=== PATIENT | female | born 1975 | race Caucasian/White ===

== ENCOUNTER 2020-04-20 15:22 | Outpatient (REF) | payer OTHER, SELFPAY ==
[2020-04-20 16:55] LABS: Anion Gap 8.4 mmol/L (3-11); BUN 13 mg/dL (7-18); CO2 25.6 mmol/L (21.0-32.0); CREATININE 0.73 mg/dL (0.55-1.02); Calcium 8.5 mg/dL (8.5-10.1); Chloride 103 mmol/L (98-107); Glucose 89 mg/dL (74-106); Potassium 4.3 mmol/L (3.5-5.1); Sodium 137 mmol/L (136-145)
[2020-04-20 17:57] LABS: Vitamin D 25 Total 26.2 ng/ml (30-100)
[2020-04-21 10:12] LABS: Hepatitis C Ab w Rflx HCV PCR Negative (Negative)
== END 2020-04-20 15:42 ==
LOC: NCHCN 15:22
PROVIDERS: PCP Nurse Practitioner Family; Visit Provider Nurse Practitioner Family
DX: Z00.00 Encounter for general adult medical examination without abnormal findings (principal); Z13.21 Encounter for screening for nutritional disorder; Z11.59 Encounter for screening for other viral diseases
CPT/HCPCS: 80048; 82306; 86803

== ENCOUNTER 2020-04-21 10:48 | Outpatient (REF) | payer OTHER, SELFPAY ==
--- NOTE | 2020-04-21 09:10 | PAPFT_PTH ---
PATIENT: Renita Rock LOC: [facility] U#:[id number] AGE/SX: 44/F ROOM: RE04/21/[address]: NOEMY Padilla : 1975 BED: DIS: 04/21/2020 SPEC #: [id number] RECD: 04/21/20 12:59 STATUS: BARBIE REEulalio #: [id number] LALO: 04/21/20 09:[address]: Sadia Naik DEPT: [facility] Cytology RECD BY: Ilda Hinson ENTERED: 04/21/20 12:59 SP TYPE: PAPFT MORALES DR: Diandra White Tissues: 1 - CX/ENDOCX FOR PAP SMEARS Procedures: PAP THIN PREP/UVM Screening HPV DNA PROBE Comments: [id number]
== END 2020-04-21 11:08 ==
LOC: LBN 10:48
PROVIDERS: PCP Nurse Practitioner Family; Visit Provider Nurse Practitioner Family
DX: Z12.4 Encounter for screening for malignant neoplasm of cervix (principal); Z11.51 Encounter for screening for human papillomavirus (HPV)
CPT/HCPCS: 88142; 87624

== ENCOUNTER 2020-05-06 02:16 | Outpatient (CLI) | payer OTHER, SELFPAY ==
--- NOTE | 2020-05-06 06:30 | DI.MAMMO_ITS ---
EXAM: MAMMO SCREENING CLINICAL HISTORY: screening,Z12.39 TECHNIQUE: Bilateral full field digital CC and MLO mammographic images were obtained with 3D tomosyn thesis and utilizing computer aided detection (CAD). COMPARISON: Available for comparison. FINDINGS: Masses/Architectural Distortion: There is a new 0.5 cm nodule 3 cm from the nipple in the left breast best appreciated on the mediolateral oblique view. There is a new nodular density in the upper righ t breast on the MLO view 8 cm from the nipple. Microcalcifications: No suspicious pleomorphic-type are seen. Skin Thickening/Nipple Retraction: None. IMPRESSION: 1. Two nodular densities seen 1 in the left breast and 1 in the right breast. 2. Bilateral spot compression views and ultrasound are requested for further evaluation. BI-RADS Category 0 - Assessment Incomplete: Need additional imaging evaluation Breast Density - Category B - Scattered areas of fibroglandular density Breast density category C or D implies that the patient has dense breast tissue. Dense breast tissue is very common and is not abnormal but dense breast tissue can make it harder to find cancer on a ma mmogram. Also, dense breast tissue may increase their breast cancer risk. This information about the result of the mammogram report was provided to the patient to raise their awareness. Use this report when you speak with the patient about their risks for breast cancer, which includes their family hist ory. At that time, you may recommend for more screening tests (Ultrasound or MRI) as they might be us eful based on their risk. A negative radiographic report should not delay biopsy if a dominant or clinically suspicious mass is present. Up to ten percent of cancers are not identified on mammography. A negative report may reinforce clinical impression. Adenosis and dense breasts may obscure an underlying neoplasm. False positive reports average 6 to 10%. Patient will receive a letter notifying them of these results.
== END 2020-05-06 02:17 | disposition home or self-care (01) ==
LOC: DI 02:16
PROVIDERS: PCP Nurse Practitioner Family; Visit Provider Nurse Practitioner Family
DX: Z12.31 Encounter for screening mammogram for malignant neoplasm of breast (principal); R92.8 Other abnormal and inconclusive findings on diagnostic imaging of breast
CPT/HCPCS: 77063; 77067

== ENCOUNTER 2020-05-15 02:44 | Outpatient (CLI) | payer OTHER, SELFPAY ==
--- NOTE | 2020-05-15 09:35 | DI.MAMMO_ITS ---
EXAM: MG MAMMO SCREEN CALL BACK BI CLINICAL HISTORY: F/U MAMMO, LT BREAST NODULAR DENSITY AND RTBREAST NODULAR DENSITY TECHNIQUE: Spot compression views and tomographic imaging were performed. COMPARISON: Outside exams from 2016 and 2018 and recent exam dated 06 May 2020. FINDINGS: The breasts are composed of scattered fibroglandular densities, Breast Density category B. No suspicious masses or suspicious microcalcifications are seen. No persistent abnormality is seen on the additional views performed. The findings are consistent wit h overlying fibroglandular tissue. There has been no significant change from prior exams. IMPRESSION: BI-RADS Category 1, Negative Yearly screening mammography is recommended. Breast Density - Category B, scattered fibroglandular densities.
== END 2020-05-15 02:45 ==
LOC: DI 02:45
PROVIDERS: PCP Nurse Practitioner Family; Visit Provider Nurse Practitioner Family
DX: Z12.31 Encounter for screening mammogram for malignant neoplasm of breast (principal); R92.8 Other abnormal and inconclusive findings on diagnostic imaging of breast; N64.59 Other signs and symptoms in breast
CPT/HCPCS: 77063; 77067

== ENCOUNTER 2021-07-06 15:28 | Outpatient (REF) | payer OTHER, SELFPAY ==
[2021-07-06 21:27] LABS: Hemoglobin A1C 5.6 % (<5.7)
[2021-07-06 21:37] LABS: Calculated LDL 119 mg/dL (<100); Cholesterol 219 mg/dL (<200); HDL Cholesterol 40 mg/dL (40-60); TSH (W/Ref FT4) 1.16 uIU/mL (0.36-3.74); Triglyceride 300 mg/dL (<150)
[2021-07-08 10:56] LABS: HIV-1/2 Ag & Ab Screen Negative (Negative)
== END 2021-07-06 15:29 | disposition home or self-care (01) ==
LOC: NCHCN 15:28
PROVIDERS: PCP Nurse Practitioner Family; Visit Provider Family Medicine
DX: Z00.00 Encounter for general adult medical examination without abnormal findings (principal); F41.9 Anxiety disorder, unspecified; Z13.1 Encounter for screening for diabetes mellitus; Z13.220 Encounter for screening for lipoid disorders; Z11.4 Encounter for screening for human immunodeficiency virus [HIV]
CPT/HCPCS: 80061; 87389; 83036; 84443

== ENCOUNTER → 2021-08-18 01:23 | Outpatient (CLI) | payer OTHER, SELFPAY ==
--- NOTE | 2021-08-18 08:30 | DI.MAMMO_ITS ---
Exam(s) MAMMO SCREENING EXAM: MAMMO SCREENING CLINICAL HISTORY: screening. TECHNIQUE: Bilateral full field digital CC and MLO mammographic images were obtained with 3D tomosyn thesis and utilizing computer aided detection (CAD). COMPARISON: Prior mammograms were reviewed, the most recent being May 2020. FINDINGS: There has been no significant change in the appearance and distribution of the fibroglandular tissue. There are no CAD designations Multiple benign appearing punctate calcifications in medial right breast unchanged. There are no mal ignant-appearing microcalcification groups in either breast. There are no new spiculated masses nor malignant appearing microcalcification groups. Asymmetric density anteriorly in the left breast is unchanged. There is no significant architectural distortion nor skin thickening-retraction. IMPRESSION: No radiographic evidence of malignancy. BI-RADS Category 2 - Benign Findings Breast Density - Category B - Scattered areas of fibroglandular density Breast density Category C or D implies that the patient has dense breast tissue. Dense breast tissue can make it harder to find cancer on a mammogram. Dense breast tissue is also associated with an incr eased risk of breast cancer. This information about the result of the mammogram report was provided to the patient to raise their awareness. Use this report when you speak with the patient about their risks for breast cancer, which includes their family history. At that time, you may recommend additional screening tests (Ultrasoun d or MRI) as these tests may add significant information. A negative radiographic report should not delay biopsy if a dominant or clinically suspicious mass is present. Up to ten percent of cancers are not identified on mammography. A negative report may reinforce clinical impression. Adenosis and dense breasts may obscure an underlying neoplasm. False positive reports average 6 to 10%. Patient will receive a letter notifying them of these results.
== END ==
PROVIDERS: PCP Nurse Practitioner Family; Visit Provider Nurse Practitioner Family
DX: Z12.31 Encounter for screening mammogram for malignant neoplasm of breast (principal)
CPT/HCPCS: 77063; 77067

== ENCOUNTER 2022-01-06 07:08 | Day surgery (SDC) | payer OTHER, SELFPAY ==
--- NOTE | 2022-01-06 07:07 | W.PM.DSUDISC ---
Discharge Plan Disposition Patient Disposition: HOME Condition: Good Discharge Details Reason For Visit: Screening colonoscopy Attending Provider: Calvin Mccarty Primary Care Provider: Diandra White Home Meds and New Rx's Prescriptions: Continued citalopram 20 mg tablet 20 mg PO DAILY alprazolam [Xanax] 0.25 mg tablet 0.25 mg PO PRN multivitamin Tablet 1 tab PO DAILY Fish Oil 300-500 mg capsule 1 cap PO DAILY cholecalciferol (vitamin D3) 10 mcg (400 unit) capsule 10 mcg PO DAILY melatonin 5 mg capsule 5 mg PO HS PRN Rybelsus 3 mg tablet 3 mg PO DAILY Discontinued polyethylene glycol 3350 17 gram/dose powder 238 g PO ONCE Qty: 238 0RF Rx Instructions: take per colonoscopy instructions bisacodyl [Dulcolax (bisacodyl)] 5 mg tablet,delayed release (DR/EC) 5 mg PO ONCE Qty: 4 0RF Rx Instructions: take per colonoscopy instructions Discharge Instructions Instructions: Diverticulosis (DC), Colorectal Polyps (DC) Additional Instructions: 1. If tolerated, consume a soft, low fiber diet for 1-2 days. 2[address] Do not drive, drink alcohol, operate machinery, make critical decisions, or do activities that require coordination or balance for 24 hours. 3. Because air was put into your colon during the procedure, expelling air from your rectum (passing gas or farting) is normal. 4. You may not have a bowel movement for 1-3 days because of the colonoscopy prep. This is normal. 5. Go directly to the emergency room if you notice any of the following: Develop chills (warm to touch), or if you have a thermometer and your temperature is above 101 Difficulty breathing or difficultly swallowing Persistent vomiting Severe abdominal pain, other than gas cramps Severe chest pain Black, tarry stools Any bleeding ? exceeding one tablespoon 6. Call your physician if the site where your intravenous was started becomes red, swollen, painful, and warm to touch. 7. Your physician has reviewed your pre-procedure medications. Please continue to take those medications as previously ordered. You will be given specific information/education regarding any changes to your medications before leaving. Activity:: Activity as Tolerated Diet:: As Tolerated Discharge Orders Discharge Orders: Discharge Order (Routine); Ordered 01/06/22 Ordered By: Calvin Mccarty DS: Diagnosis Discharge Diagnosis (1) Colorectal polyps: Asessment and Plan: I will contact you with results of the biopsy
--- NOTE | 2022-01-06 07:08 | W.COLOREPORT ---
Colonoscopy Report Date of procedure: 01/06/22 Pre-op diagnosis general: Screening colonoscopy routine health maintenance Post-op diagnosis procedure note: other (Colorectal polyps, diverticulosis) Procedure: Screening colonoscopy Surgeon: Calvin Mccarty Anesthesia Type: General:No Airway Estimated blood loss (mL): 20 Pathology: other (Polyp at 100 cm, polyp at 20 cm) Complications: None Disposition: same day Indications: Renita is a 46-year-old woman who presents for routine colonoscopy as screening for basic health Prep: Miralax/Dulcolax Procedure Start Time: 08:29 Procedure End Time: 08:52 Retraction Time: 17 Procedure Description: After the induction of monitored anesthetic care, and with the patient in left lateral decubitus position, I began by performing an external anorectal exam.? Perineum and skin were normal, as was the anal verge.? There was a fibrosed external skin tag.? Next, I performed a digital rectal exam.? I did not appreciate any abnormal findings.? Next, I advanced a colonoscope into the rectal vault.? I performed retroflexion.? I did not see signs of pathologic internal hemorrhoids.? Using insufflation, I then advanced the colonoscope beyond the rectal folds and into the sigmoid colon before advancing towards the cecum.? The quality of the prep was adequate.? The scope was noted to be in the cecum by identification of the ileocecal valve and appendiceal orifice.? I then began withdrawing the colonoscope using repeated irrigation as necessary for full evaluation of the colonic mucosa. Around 100 cm from the anal verge I identified a 0.75 cm polyp. ?It appeared sessile in character. ?I was able to remove this with a cold forceps. ?I examined the site, and there was minimal bleeding. ?Once this was completed, I continued to withdraw the scope and examine the remainder of the colonic mucosa. Once the scope was withdrawn to the level of the rectum, great care was taken to examine portions of the rectal folds.?Around 20 cm from the anal verge I identified a 0.5 cm polyp. ?It appeared sessile in character. ?I was able to remove this with a cold forceps. ?I examined the site, and there was minimal bleeding. ?Once this was completed, I continued to withdraw the scope and examine the remainder of the colonic mucosa. Finally, the scope was withdrawn and the patient was brought to the same-day surgery recovery unit as the anesthetic wore off. ?The findings and instructions were shared with the patient prior to discharge.
[2022-01-06 07:28] VITALS: BP 120/84; PULSE 98; RESP 18; TEMP 36.6; O2SAT 97
--- NOTE | 2022-01-06 07:42 | W.ANESPRE ---
General Info Height: 5 ft 9.5 in Weight: 98.1 kg Body Mass Index (BMI): 31.4 Surgical Procedure: Operation Date: 01/06/22 08:35 Proposed Procedure Side Surgeon p Colonoscopy Calvin Mccarty MD Meds Allergies and Home Medications Allergies Allergy/AdvReac Type Severity Reaction Status Date / Time No Known Allergies Allergy Verified 01/06/22 07:32 Home Medication Medication Instructions Recorded citalopram 20 mg tablet 20 mg PO DAILY 04/21/20 alprazolam 0.25 mg tablet (Xanax) 0.25 mg PO PRN 07/05/21 melatonin 5 mg capsule 5 mg PO HS PRN 11/03/21 cholecalciferol (vitamin D3) 10 10 mcg PO DAILY 12/22/21 mcg (400 unit) capsule multivitamin 1 tab PO DAILY 12/22/21 omega-3 fatty acids-fish oil 300 1 cap PO DAILY 12/22/21 mg-500 mg capsule (Fish Oil) semaglutide 3 mg tablet (Rybelsus) 3 mg PO DAILY 12/23/21 Current Visit Medications: Current Medications Generic Name Dose Route Start Last Admin Trade Name Freq PRN Reason Stop Dose Admin Hyoscyamine Sulfate 0.125 mg 01/06/22 07:06 Hyoscyamine 0.125 Mg Sl/Oral/Chew SL DIRECTED PRN Ringer's Solution 1,000 mls @ 80 mls/hr 01/06/22 06:00 IV 02/04/22 23:59 INFUSION CATARINO IV Miscellaneous Supplies 1 each 01/06/22 06:00 Iv Access IV 02/04/22 23:59 DIRECTED CATARINO Ondansetron HCl 4 mg 01/06/22 07:06 Ondansetron 4 Mg/2 Ml Vial IVP Q4H PRN PRN Nausea / Vomiting Sodium Chloride 0 ml 01/06/22 06:00 Normal Saline Flush 10 Ml Syr IV 02/04/22 23:59 PRN PRN Sodium Chloride 0 ml 01/06/22 06:00 Normal Saline 10 Ml Vial IJ 02/04/22 23:59 DIRECTED PRN Sterile Water 0 ml 01/06/22 06:00 Water,Injection,Sterile 10 Ml Vial IJ 02/04/22 23:59 DIRECTED PRN PFSH Active Problems Active Problems: Problem Status Onset Code Screening for colon cancer Z12.11 Medical History Medical History Anxiety Family history of ovarian cancer Infertility Intramural uterine fibroid Perimenopausal menorrhagia Surgical History Surgical History (Updated 01/06/22 @ 07:35 by Miri Mensah) History of bunionectomy bilateral feet Hx of wisdom tooth extraction S/P dilation and curettage x 3 Tobacco Smoking/Tobacco Use Status: Former Tobacco Use Alcohol Alcohol Intake: current Alcohol intake frequency: a few times a week Alcohol type: wine Substance Use Substance use: Never Substance use type: does not use Details: alcohol: t-7 Prental History History 3 Para Hx # Term Pregnancies Multiple births Hx # Pregnancies Ectopic pregnancies AB induced Hx Number of Living Children AB spontaneous 3 Vital Signs and Lab Results Vital Signs Most Recent Vital Signs in EMR: Most Recent Vital Signs Temp Pulse Resp BP Pulse Ox 36.6 C 98 H 18 120/84 97 01/06/22 07:28 01/06/22 07:28 01/06/22 07:28 01/06/22 07:28 01/06/22 07:28 Lab Results Blood Type / Crossmatch: No Data to Display Complete Blood Count: No Data to Display Complete Metabolic Panel: No Data to Display Liver Function Panel: No Data to Display Coagulation Panel: No Data to Display Cardiac Panel: No Data to Display Arterial Blood Gas: No Data to Display Venous Blood Gas: No Data to Display Pancreas Panel: No Data to Display Thyroid Panel: No Data to Display Infectious Disease: No Data to Display Blood Cultures: No Data to Display Toxicology Panel: No Data to Display Panel: No Data to Display Anesthesia Assessment and Plan Anesthesia History Personal History: No History of Anesthesia Complications Family History: No Family History of Anesthesia Complications Exercise Tolerance Exercise Tolerance: Metabolic Equivalents>4 Implantable Cardiac Device Does patient have a Pacemaker or an ICD?: No ASA Classification ASA Score: ASA 2 Emergency Case?: No NPO Status NPO Status: NPO Clears >2 hours, Solids >8 hours Anesthesia Plan Resuscitation Status: Full Code Anesthesia Technique: General Anesthesia Airway Planned: Natural Airway Monitors Used: Standard Monitors Preoperative Comments:: 46 yo female for colonoscopy. Sig PMHx: Anxiety (alprazolam, citalopram), former smoker, occ EtOH, on semaglutide. Previous Airway: none on file.
[2022-01-06] MEDS: Lactated Ringers 1,000 ML 80 ML IV (07:50)
--- NOTE | 2022-01-06 08:14 | W.ANESPRE ---
General Info Date of Service Date Performed: 01/06/22 Height: 5 ft 9.5 in Weight: 98.1 kg Body Mass Index (BMI): 31.4 Surgical Procedure: Operation Date: 01/06/22 08:35 Proposed Procedure Side Surgeon candi Mccarty MD Meds Allergies and Home Medications Allergies Allergy/AdvReac Type Severity Reaction Status Date / Time No Known Allergies Allergy Verified 01/06/22 07:32 Home Medication Medication Instructions Recorded citalopram 20 mg tablet 20 mg PO DAILY 04/21/20 alprazolam 0.25 mg tablet (Xanax) 0.25 mg PO PRN 07/05/21 melatonin 5 mg capsule 5 mg PO HS PRN 11/03/21 cholecalciferol (vitamin D3) 10 10 mcg PO DAILY 12/22/21 mcg (400 unit) capsule multivitamin 1 tab PO DAILY 12/22/21 omega-3 fatty acids-fish oil 300 1 cap PO DAILY 12/22/21 mg-500 mg capsule (Fish Oil) semaglutide 3 mg tablet (Rybelsus) 3 mg PO DAILY 12/23/21 Current Visit Medications: Current Medications Generic Name Dose Route Start Last Admin Trade Name Freq PRN Reason Stop Dose Admin Hyoscyamine Sulfate 0.125 mg 01/06/22 07:06 Hyoscyamine 0.125 Mg Sl/Oral/Chew SL DIRECTED PRN Ringer's Solution 1,000 mls @ 80 mls/hr 01/06/22 06:00 01/06/22 07:50 IV 02/04/22 23:59 80 mls/hr INFUSION CATARINO Administration IV Miscellaneous Supplies 1 each 01/06/22 06:00 Iv Access IV 02/04/22 23:59 DIRECTED CATARINO Ondansetron HCl 4 mg 01/06/22 07:06 Ondansetron 4 Mg/2 Ml Vial IVP Q4H PRN PRN Nausea / Vomiting Sodium Chloride 0 ml 01/06/22 06:00 Normal Saline Flush 10 Ml Syr IV 02/04/22 23:59 PRN PRN Sodium Chloride 0 ml 01/06/22 06:00 Normal Saline 10 Ml Vial IJ 02/04/22 23:59 DIRECTED PRN Sterile Water 0 ml 01/06/22 06:00 Water,Injection,Sterile 10 Ml Vial IJ 02/04/22 23:59 DIRECTED PRN PFSH Active Problems Active Problems: Problem Status Onset Code Screening for colon cancer Z12.11 Medical History Medical History Anxiety Family history of ovarian cancer Infertility Intramural uterine fibroid Perimenopausal menorrhagia Surgical History Surgical History (Updated 01/06/22 @ 07:35 by Miri Mensah) History of bunionectomy bilateral feet Hx of wisdom tooth extraction S/P dilation and curettage x 3 Tobacco Smoking/Tobacco Use Status: Former Tobacco Use Alcohol Alcohol Intake: current Alcohol intake frequency: a few times a week Alcohol type: wine Substance Use Substance use: Never Substance use type: does not use Details: alcohol: t-7 Prental History History 3 Para Hx # Term Pregnancies Multiple births Hx # Pregnancies Ectopic pregnancies AB induced Hx Number of Living Children AB spontaneous 3 Vital Signs and Lab Results Vital Signs Most Recent Vital Signs in EMR: Most Recent Vital Signs Temp Pulse Resp BP Pulse Ox 36.6 C 98 H 18 120/84 97 01/06/22 07:28 01/06/22 07:28 01/06/22 07:28 01/06/22 07:28 01/06/22 07:28 Lab Results Blood Type / Crossmatch: No Data to Display Complete Blood Count: No Data to Display Complete Metabolic Panel: No Data to Display Liver Function Panel: No Data to Display Coagulation Panel: No Data to Display Cardiac Panel: No Data to Display Arterial Blood Gas: No Data to Display Venous Blood Gas: No Data to Display Pancreas Panel: No Data to Display Thyroid Panel: No Data to Display Infectious Disease: No Data to Display Blood Cultures: No Data to Display Toxicology Panel: No Data to Display Panel: No Data to Display Anesthesia Assessment and Plan Anesthesia History Personal History: No History of Anesthesia Complications Family History: No Family History of Anesthesia Complications Exercise Tolerance Exercise Tolerance: Metabolic Equivalents>4 Pertinent Negatives Pertinent Negatives: No Symptoms of GERD, No Major Cardiovascular Symptoms or Complaints, No Major Pulmonary Symptoms or Complaints and No History of CVA/TIA Cardiac & Pulmonary Exam Cardiac Exam: Normal S1/S2 Heart Sounds Pulmonary Exam: Clear Bilateral Breath Sounds Implantable Cardiac Device Does patient have a Pacemaker or an ICD?: No Airway Exam Known Difficult Airway: No Mallampati Class: 2 Mouth Opening: Normal (> 3cm) Thyromental Distance: Greater than 3 cm Neck Range of Motion: Full ROM Neck Circumference: Normal Teeth Condition: Normal Dentition ASA Classification ASA Score: ASA 2 Emergency Case?: No NPO Status NPO Status: NPO Clears >2 hours, Solids >8 hours Status Status: Negative HCG Anesthesia Plan Resuscitation Status: Full Code Anesthesia Technique: General Anesthesia Airway Planned: Natural Airway Monitors Used: Standard Monitors
[2022-01-06 08:22] VITALS: BMI 31.4
--- NOTE | 2022-01-06 08:44 | BOWEL_PTH ---
PATIENT: Renita Rock LOC: [facility] U#:[id number] AGE/SX: 46/F ROOM: RE01/06/[address]: Calvin Mccarty MD : 1975 BED: DIS: 01/06/2022 SPEC #: [id number] RECD: 01/06/22 12:58 STATUS: JOSE LUISJesse RE #: [id number] LALO: 01/06/22 08:[address]: Calvin Mccarty DEPT: Surgical Specimen RECD BY: Ilda Hinson ENTERED: 01/06/22 12:59 SP TYPE: Bowel OTHR DR: Diandra White Tissues: 1 - BIOPSY BOWEL 2 - BIOPSY BOWEL Procedures: GROSS AND MICRO LEVEL 4 Comments: [id number]
[2022-01-06 08:55] VITALS: BP 127/96; PULSE 82; RESP 20; TEMP 36.2; O2SAT 97
[2022-01-06 09:21] VITALS: BP 134/90; PULSE 83; RESP 18; TEMP 36.5; O2SAT 97
--- NOTE | 2022-01-06 09:21 | W.ANESPOSTOP ---
Postoperative Evaluation Date, Time and Location Date Performed: 01/06/22 Time Performed: 09:21 Patient Location: Day Surgery Unit Vital Signs Most Recent Imported Vital Signs: Most Recent Vital Signs Temp Pulse Resp BP Pulse Ox 36.2 C L 82 20 127/96 H 97 01/06/22 08:55 01/06/22 08:55 01/06/22 08:55 01/06/22 08:55 01/06/22 08:55 Pain Score Most Recent Pain Score: Most Recent Pain Score Pain Level 0 01/06/22 07:28 Assessment Mental Status: Awake (Alert & Oriented to Patient Baseline) Airway and Respiratory Function: Patent airway with normal (patient baseline) respiratory exam Cardiovascular Function: Hemodynamically Stable Hydration Status: Adequately Hydrated Nausea & Vomiting: No Nausea or Vomiting Pain: Pt. Denies Any Pain Peripheral Nerve Block: Patient did not receive a nerve block
== END 2022-01-06 10:03 | disposition home or self-care (01) ==
PROVIDERS: PCP Nurse Practitioner Family; Visit Provider Surgery
PROC: 0DJD8ZZ Inspection of Lower Intestinal Tract, Via Natural or Artificial Opening Endoscopic (ICD-10-PCS; CPT 45378; principal; 2022-01-06 08:30)
DX: Z12.11 Encounter for screening for malignant neoplasm of colon (principal); K57.30 Diverticulosis of large intestine without perforation or abscess without bleeding; K62.1 Rectal polyp
CPT/HCPCS: 45380; 81025; 88305

== ENCOUNTER 2022-03-07 21:17 | Emergency (ER) | payer OTHER, SELFPAY ==
[2022-03-07 21:23] VITALS: BP 123/92; PULSE 118; RESP 16; TEMP 37.4; O2SAT 96
--- NOTE | 2022-03-07 22:32 | W.ED.GENAD ---
Discharge Plan Discharge Details Chief Complaint: Nausea/Vomit/Diar Primary Care Provider: Diandra White ED Provider: Nghia Ford Home Meds and New Rx's Prescriptions: No Action citalopram 20 mg tablet 20 mg PO DAILY alprazolam [Xanax] 0.25 mg tablet 0.25 mg PO PRN multivitamin Tablet 1 tab PO DAILY Fish Oil 300-500 mg capsule 1 cap PO DAILY cholecalciferol (vitamin D3) 10 mcg (400 unit) capsule 10 mcg PO DAILY melatonin 5 mg capsule 5 mg PO HS PRN Rybelsus 3 mg tablet 3 mg PO DAILY Medical Decision Making 46-year-old female flu positive presents with nausea and vomiting. Patient is tachycardic. Nontoxic currently resting comfortably no vomiting. Likely symptomatic flu. Lower suspicion for cholecystitis pancreatitis bowel junction or serious bacterial infection. Will obtain screening labs antiemetics anti-inflammatory close reassessment 23: 18 no active vomiting. Nontoxic. Awaiting labs UA and response to fluids Sign Out Yes HPI General Date/Time Provider Initiated Documentation: 03/07/22 21:52. HPI Narrative: 46-year-old female presents with nausea and vomiting in the setting of influenza. Had bowel movement earlier today no history of abdominal surgeries. Related Data Home Medications Medication Instructions Recorded Confirmed citalopram 20 mg tablet 20 mg PO DAILY 04/21/20 03/07/22 alprazolam 0.25 mg tablet (Xanax) 0.25 mg PO PRN 07/05/21 03/07/22 melatonin 5 mg capsule 5 mg PO HS PRN 11/03/21 03/07/22 cholecalciferol (vitamin D3) 10 10 mcg PO DAILY 12/22/21 03/07/22 mcg (400 unit) capsule multivitamin 1 tab PO DAILY 12/22/21 03/07/22 omega-3 fatty acids-fish oil 300 1 cap PO DAILY 12/22/21 03/07/22 mg-500 mg capsule (Fish Oil) semaglutide 3 mg tablet (Rybelsus) 3 mg PO DAILY 12/23/21 03/07/22 Allergies Allergy/AdvReac Type Severity Reaction Status Date / Time No Known Allergies Allergy Verified 03/07/22 21:27 General Stated Complaint: Nausea/Vomit/Diar GEORGES: 3 Review of Systems Narrative: Review of Systems Constitutional: negative Eyes: negative ENT: negative Cardiovascular: negative Respiratory: Nausea vomiting Gastrointestinal: negative : negative Musculoskeletal: negative Skin: negative Neurologic: negative Psych: negative PFSH All Active Problems (Updated 01/06/22 @ 09:01 by Calvin Mccarty MD) Screening for colon cancer (Acute) Medical History (Updated 01/06/22 @ 09:01 by Calvin Mccarty MD) Anxiety Colorectal polyps Family history of ovarian cancer Infertility Intramural uterine fibroid Perimenopausal menorrhagia Surgical History (Updated 01/06/22 @ 07:35 by Miri Mensah) History of bunionectomy bilateral feet Hx of wisdom tooth extraction S/P dilation and curettage x 3 Family History Father Diabetes Mother Tremor due to disorder of MAINTENA[employer]CE ELECT[employer]ICIAN Paternal Grandmother Ovarian cancer Social History Smoking/Tobacco Use Status: Former Tobacco Use Quit Date: 04/03/06 Smoking risk assessment performed?: Yes Alcohol Intake: current Alcohol Intake frequency: a few times a week Alcohol type: wine Drug use: Never Substance use type: does not use Details: alcohol: t-7 Do you feel safe at home: Yes Do you feel safe in your relationship?: Yes Female Reproductive History Menstrual control method: none History History 3 Para Hx # Term Pregnancies Multiple births Hx # Pregnancies Ectopic pregnancies AB induced Hx Number of Living Children AB spontaneous 3 Exam Narrative Exam Narrative: Physical Examination General: alert, awake, cooperative, resting comfortably, no acute distress HEENT: normocephalic, atraumatic; PERRL, EOM intact, conjunctiva normal; no nasal discharge; moist mucous membranes, oral and pharyngeal mucosa normal, tolerating secretions Neck: supple, trachea midline; full ROM Chest: normal to inspection Respiratory: normal respiratory effort, speaking in full sentences, clear to auscultation, no wheezing, rales or rhonchi Cardiac: Tachycardia, regular rhythm, S1S2 intact, no murmurs rubs or gallops GI: abdomen soft, non-tender, non-distended; no palpable mass or hepatosplenomegaly Skin: no lesions, rashes or trauma appreciated Neuro: AAOx3, normal speech, moving all extremities Psych: Appropriate mood and affect Course Vital Signs Vital signs: Vital Signs Temperature 37.4 C 12/05/22 21:23 Pulse 118 H 03/07/22 21:23 Respiratory Rate 16 03/07/22 21:23 Blood Pressure 123/92 H 03/07/22 21:23 Pulse Oximetry 96 03/07/22 21:23 Temperature 37.4 C 03/07/22 21:23 Temperature Source Temporal Artery Scan 03/07/22 21:23 Pulse 118 H 03/07/22 21:23 Respiratory Rate 16 03/07/22 21:23 Respiratory Effort 03/07/22 21:23 Blood Pressure 123/92 H 03/07/22 21:23 Blood Pressure Position Sitting 03/07/22 21:23 Pulse Oximetry 96 03/07/22 21:23 Oxygen Delivery Method Room Air 03/07/22 21:23 Oxygen Flow Rate 0 03/07/22 21:23 Pain Level 7 03/07/22 21:23
[2022-03-07] MEDS: Normal Saline 1,000 ML 1000 ML IV (22:36)
[2022-03-07] MEDS: LORazepam 2 MG/ML VIAL 1 MG IVP (22:37)
[2022-03-07] MEDS: Ondansetron 4 MG/2 ML VIAL IVP (22:37)
[2022-03-07 22:58] LABS: Abs Immature Grans 0.03 10^3/uL (0.0-0.06); Absolute Basophil Count 0.03 10^3/uL (0.0-0.2); Absolute Eosinophil Count 0.02 10^3/uL (0.0-0.7); Absolute Lymphocyte Count 0.29 10^3/uL (1.2-3.4); Absolute Monocyte Count 0.47 10^3/uL (0.1-0.8); Basophils % 0.4; Eosinophils % 0.3; HGB 13.1 g/dL (11.2-15.7); Immature Grans % 0.4; Lymphocytes % 4.2; MCHC 33.6 % (32.0-36.0); MCV 83 fL (80-95); MPV 9.6 fL (8.0-11.0); Monocytes % 6.9; Neutrophils % 87.8; Platelet Count 221 10^3/uL (130-400); RBC 4.68 10^6/uL (3.93-5.22); RDW 12.9 % (11.7-14.6); RDW-SD 38.6 fL; WBC 6.84 10^3/uL (4.4-10.8)
[2022-03-07] MEDS: Dexamethasone 10 MG/ML VIAL IVP (23:07)
[2022-03-07 23:14] LABS: ALT 16 U/L (14-59); AST 14 U/L (15-37); Albumin 3.7 g/dL (3.4-5.0); Alkaline Phosphatase 40 U/L (46-116); BUN 11 mg/dL (7-18); Bilirubin, Total 0.2 mg/dL (0.2-1.0); CREATININE 0.9 mg/dL (0.55-1.02); Calcium 8.8 mg/dL (8.5-10.1); Chloride 101 mmol/L (98-107); Estimated GFR 78.86 (mL/min/1.73m2); Glucose 130 mg/dL (74-106); Lipase 100 U/L (73-393); Potassium 3.8 mmol/L (3.5-5.1); Sodium 138 mmol/L (136-145); Total Protein 7.8 g/dL (6.4-8.2)
[2022-03-07] MEDS: ACETAMINOPHEN 1,000 MG/100 ML BTL 400 MG IVPB (23:43)
[2022-03-07 23:53] VITALS: BP 125/76; PULSE 110; RESP 18; TEMP 36.7; O2SAT 93
--- NOTE | 2022-03-08 01:06 | W.EDPROG ---
Date of service: 03/08/22 Time of Service: 01:07 Medical Decision Making Patient was signed out to me by my colleague Dr. Gisselle Jordan. Please refer to his HPI, physical exam, assessment and plan. Pending laboratory work-up and reassessment. On reassessment the patient is much better. She is able to tolerate p.o., she feels well and is requesting discharge home with her . Laboratory work-up shows no white count or bandemia. She does have lymphopenia which is clinically consistent with her influenza. Electrolytes stable, renal function stable, lipase normal. Patient feels well. She has tolerated IV fluids and has tolerated p.o. Patient will be discharged. Will give Zofran for home use. Discussed red flags for which to return. I have extensively reviewed the treatment plan and discharge instructions with the patient and their family. I have addressed all patient concerns at this time. The patient and family was made aware of what symptoms to monitor for that would warrant a return to the emergency department. Discussed the plan with the patient and family, they demonstrate verbal understanding and agreement with our assessment and plan at this time. The documentation in this chart was dictated using [employer] dictation software. Please excuse any dictation errors. Sign Out No Sign Out Sign Out Data: Sign Out Comment: flu positive, nausea; pending response to fluids and UA Last updated by Nghia Ford MD at 03/07/22 23:44 Discharge Plan Disposition Patient Disposition: Home Condition: Good Discharge Details Clinical Impression: Vomiting, Dehydration Primary Care Provider: Diandra White ED Provider: Joaquin Sanchez Home Meds and New Rx's Prescriptions: New ondansetron 4 mg tablet,disintegrating 4 mg PO Q6H PRNQty: 10 0RF No Action citalopram 20 mg tablet 20 mg PO DAILY alprazolam [Xanax] 0.25 mg tablet 0.25 mg PO PRN multivitamin Tablet 1 tab PO DAILY Fish Oil 300-500 mg capsule 1 cap PO DAILY cholecalciferol (vitamin D3) 10 mcg (400 unit) capsule 10 mcg PO DAILY melatonin 5 mg capsule 5 mg PO HS PRN Rybelsus 3 mg tablet 3 mg PO DAILY Discharge Instructions Instructions: Dehydration (ED) Additional Instructions: Please drink plenty fluids and stay well-hydrated. Please take the Zofran as needed for nausea and vomiting. If you notice any worsening of your symptoms, or any new symptoms such as vomiting, diarrhea, fever, chills, shortness of breath, chest pain, numbness, weakness, or fainting , please return immediately to the emergency department for reevaluation. Please follow up with your primary care provider as soon as possible for reassessment and reevaluation. As always, it was a pleasure participating in your medical care today. Referrals: Diandra White [Primary Care Provider] - Discharge Data Discharge Date/Time-TO BE ENTERED AT DEPARTURE: 03/08/22 01:06
[2022-03-08] MEDS: Ondansetron O.D.T. 4 MG TABEF, 3 TABS/BTL PO (01:23)
[2022-03-08 01:26] VITALS: BP 122/67; PULSE 70; RESP 16; TEMP 36.4; O2SAT 99
== END 2022-03-08 01:06 | disposition home or self-care (01) ==
PROVIDERS: Emergency Medicine; Emergency Provider Student in an Organized Health Care Education/Training Program; PCP Nurse Practitioner Family
DX: J10.2 Influenza due to other identified influenza virus with gastrointestinal manifestations (principal); R00.0 Tachycardia, unspecified; E86.0 Dehydration
CPT/HCPCS: 80053; 83690; 96361; 96365; 96366; 96375; 99284; 85025; 99283; J0131; J1100; J2060; J2405

== ENCOUNTER 2022-05-04 18:51 | Outpatient (REF) | payer OTHER, SELFPAY ==
[2022-05-04 19:50] LABS: Abs Immature Grans 0.04 10^3/uL (0.0-0.06); Absolute Eosinophil Count 0.24 10^3/uL (0.0-0.7); Absolute Lymphocyte Count 2.68 10^3/uL (1.2-3.4); Absolute Monocyte Count 0.71 10^3/uL (0.1-0.8); Absolute Neutrophil Count 5.47 10^3/uL (1.2-6.7); Basophils % 1.1; Eosinophils % 2.6; HCT 42.4 % (36.0-46.0); Immature Grans % 0.4; MCV 85 fL (80-95); MPV 9.3 fL (8.0-11.0); Monocytes % 7.7; Neutrophils % 59.2; Platelet Count 343 10^3/uL (130-400); RDW 12.8 % (11.7-14.6); RDW-SD 39.4 fL; WBC 9.24 10^3/uL (4.4-10.8)
[2022-05-04 20:18] LABS: ALT 17 U/L (14-59); AST 16 U/L (15-37); Albumin 4.1 g/dL (3.4-5.0); Alkaline Phosphatase 42 U/L (46-116); Anion Gap 6.5 mmol/L (3-11); BUN 18 mg/dL (7-18); Bilirubin, Total 0.2 mg/dL (0.2-1.0); CO2 31.5 mmol/L (21.0-32.0); CREATININE 0.8 mg/dL (0.55-1.02); Calcium 9.8 mg/dL (8.5-10.1); Chloride 101 mmol/L (98-107); Estimated GFR 90.27 (mL/min/1.73m2); Glucose 84 mg/dL (74-106); Potassium 4.1 mmol/L (3.5-5.1); Sodium 139 mmol/L (136-145); Total Protein 7.9 g/dL (6.4-8.2)
== END 2022-05-04 18:52 | disposition home or self-care (01) ==
LOC: NCHCN 18:51
PROVIDERS: PCP Nurse Practitioner Family; Visit Provider Family Medicine
DX: R10.9 Unspecified abdominal pain (principal)
CPT/HCPCS: 80053; 85025

== ENCOUNTER → 2022-12-07 02:36 | Outpatient (CLI) | payer BC, SELFPAY ==
--- NOTE | 2022-12-07 09:15 | DI.MAMMO_ITS ---
Exam(s) MAMMO SCREENING EXAM: MAMMO SCREENING CLINICAL HISTORY: screening TECHNIQUE: Bilateral full field digital CC and MLO mammographic images were obtained with 3D tomosyn thesis and utilizing computer aided detection (CAD). COMPARISON: Available for comparison. FINDINGS: Masses/Architectural Distortion: There is an area of increased density in the inferior left breast on the MLO view. This may represent overlying fibroglandular tissue, but additional views requested fo r further evaluation. Microcalcifications: No suspicious pleomorphic-type are seen. Skin Thickening/Nipple Retraction: None. IMPRESSION: 1. Area of increased density in the inferior left breast on the MLO view. It lies 5 cm from the nipp le. 2. Spot compression views requested. Limited left breast ultrasound may be indicated at that time. BI-RADS Category 0 - Assessment Incomplete: Need additional imaging evaluation Breast Density - Category B - Scattered areas of fibroglandular density Breast density category C or D implies that the patient has dense breast tissue. Dense breast tissue is very common and is not abnormal but dense breast tissue can make it harder to find cancer on a ma mmogram. Also, dense breast tissue may increase their breast cancer risk. This information about the result of the mammogram report was provided to the patient to raise their awareness. Use this report when you speak with the patient about their risks for breast cancer, which includes their family hist ory. At that time, you may recommend for more screening tests (Ultrasound or MRI) as they might be us eful based on their risk. A negative radiographic report should not delay biopsy if a dominant or clinically suspicious mass is present. Up to ten percent of cancers are not identified on mammography. A negative report may reinforce clinical impression. Adenosis and dense breasts may obscure an underlying neoplasm. False positive reports average 6 to 10%. Patient will receive a letter notifying them of these results.
== END ==
PROVIDERS: PCP Nurse Practitioner Family; Visit Provider Obstetrics & Gynecology
DX: Z12.31 Encounter for screening mammogram for malignant neoplasm of breast (principal); R92.8 Other abnormal and inconclusive findings on diagnostic imaging of breast
CPT/HCPCS: 77063; 77067

== ENCOUNTER → 2022-12-12 01:01 | Outpatient (CLI) | payer BC, SELFPAY ==
--- NOTE | 2022-12-12 | DI.US_ITS ---
Exam(s) MG MAMMO SCREEN CALL BACK UNI US BREAST LT COMPLETE EXAM: MG MAMMO SCREEN CALL BACK UNI-LEFT AND COMPLETE LEFT BREAST ULTRASOUND CLINICAL HISTORY: F/U MAMMO, INCREASED DENSITY INF LT BREAST,R92.8. TECHNIQUE: Unilateral spot mammographic images obtained with 3D tomosynthesisand utilizing computer aided detection (CAD). . Complete LEFT breast Ultrasound was also performed, including all 4 quadrants, the retroareolar regio n, and the ipsilateral axilla. COMPARISON: Prior mammograms were reviewed. This additional imaging was performed due to findings described on the recent screening mammogram of 12/07/2022. FINDINGS: DIAGNOSTIC MAMMOGRAM: Additional mammographic views performed todayrender this area less concerning and similar in appearan ce to prior mammograms. COMPLETE LEFT BREAST ULTRASOUND: Ultrasound performed today reveals a solitary finding which is at the 5 o'clock position and has appe arance of a 3 millimeter benign microcyst. There are no solid lesions in all 4 quadrants.. Scanning of the ipsilateral axilla reveals no significant adenopathy. IMPRESSION: 1. No radiographic evidence of malignancy in left breast. 2. Ultrasound reveals a solitary benign 3 mm micro cyst at 5 o'clock position. Appropriate follow-up is to keep this patient on her yearly mammogram schedule, with earlier imaging if a self detected breast change is noted.. The patient was informed of these findings and recommendations by myself prior to leaving the departm ent today. BI-RADS Category 2 - Benign Findings Breast Density - Category B - Scattered areas of fibroglandular density Breast density Category C or D implies that the patient has dense breast tissue. Dense breast tissue can make it harder to find cancer on a mammogram. Dense breast tissue is also associated with an incr eased risk of breast cancer. This information about the result of the mammogram report was provided to the patient to raise their awareness. Use this report when you speak with the patient about their risks for breast cancer, which includes their family history. At that time, you may recommend additional screening tests (Ultrasoun d or MRI) as these tests may add significant information. A negative radiographic report should not delay biopsy if a dominant or clinically suspicious mass is present. Up to ten percent of cancers are not identified on mammography. A negative report may reinforce clinical impression. Adenosis and dense breasts may obscure an underlying neoplasm. False positive reports average 6 to 10%. Patient will receive a letter notifying them of these results.
== END ==
PROVIDERS: PCP Nurse Practitioner Family; Visit Provider Obstetrics & Gynecology
DX: Z12.31 Encounter for screening mammogram for malignant neoplasm of breast (principal); R92.8 Other abnormal and inconclusive findings on diagnostic imaging of breast
CPT/HCPCS: 76642; 77063; 77067

== ENCOUNTER 2023-08-25 21:16 | Outpatient (REF) | payer MEDICAID, SELFPAY | END 2023-08-25 21:17 | disposition home or self-care (01) | LOC: LBN 21:16 | PROVIDERS: PCP Nurse Practitioner Family; Visit Provider Physician Assistant Medical | DX: J02.9 Acute pharyngitis, unspecified (principal) | CPT/HCPCS: 87070 ==

== ENCOUNTER 2023-10-10 11:06 | Emergency (ER) | payer BC, SELFPAY ==
--- NOTE | 2023-10-10 11:00 | RT.EKG_ITS ---
APPROVED REPORT Exam: Resting ECG Reason for Exam: parethesia, right arm Patient Location: E HR:88 bpm ECG Measurements Heart Rate 88 AXIS VT 148 P 75 QRSd 77 QRS 15 QT 369 T 30 QTc 446 Conclusion Sinus rhythm...normal P axis, V-rate 60- 99 Probable left atrial enlargement...P >50mS, <-0.10mV V1 sinus rhtyhm, normal axis, normal intervals, non ischemic
[2023-10-10 11:08] VITALS: BP 146/93; PULSE 107; RESP 15; TEMP 36.7; O2SAT 98
--- NOTE | 2023-10-10 11:55 | ED.GENADUL_ITS ---
Discharge Plan Disposition Patient Disposition: Home Condition: Improving Discharge Details Chief Complaint: GenMedical Clinical Impression: Fasciculation, Visual symptoms, Hypomagnesemia Primary Care Provider: Diandra White ED Provider: Nghia Ford Home Meds and New Rx's Prescriptions: No Action citalopram 20 mg tablet 20 mg PO DAILY alprazolam [Xanax] 0.25 mg tablet 0.25 mg PO PRN multivitamin Tablet 1 tab PO DAILY Fish Oil 300-500 mg capsule 1 cap PO DAILY cholecalciferol (vitamin D3) 10 mcg (400 unit) capsule 10 mcg PO DAILY melatonin 5 mg capsule 5 mg PO HS PRN ondansetron 4 mg tablet,disintegrating 4 mg PO Q6H PRNQty: 10 0RF Discharge Instructions Instructions: Hypomagnesemia Additional Instructions: Please follow-up closely with your primary care physician. Return to the emerged part for any worsening symptoms HPI General Date/Time Provider Initiated Documentation: 10/10/23 11:10 . HPI Narrative: 48-year-old female history of ocular migraine presents with brief sensation of flashing in her right visual field associated with quivering of her right upper lip and right wrist described as deep muscle fasciculation lasting less than 10 minutes, self resolving no associated headache nausea vomiting neck pain weakness numbness or balance issues no associated change in vision, patient has had similar episode within the last week when she was out of town, does endorse being under a tremendous amount of stress from psychosocial events in her life, she does endorse feeling safe and having good support, currently asymptomatic Related Data Home Medications Medication Instructions Recorded Confirmed citalopram 20 mg tablet 20 mg PO DAILY 04/21/20 10/10/23 alprazolam 0.25 mg tablet (Xanax) 0.25 mg PO PRN 07/05/21 10/10/23 melatonin 5 mg capsule 5 mg PO HS PRN 11/03/21 10/10/23 cholecalciferol (vitamin D3) 10 10 mcg PO DAILY 12/22/21 10/10/23 mcg (400 unit) capsule multivitamin 1 tab PO DAILY 12/22/21 10/10/23 omega-3 fatty acids-fish oil 300 1 cap PO DAILY 12/22/21 10/10/23 mg-500 mg capsule (Fish Oil) ondansetron 4 mg disintegrating 4 mg PO Q6H PRN #10 tabs 03/08/22 10/10/23 tablet Previous Rx's Medication Instructions Recorded ondansetron 4 mg disintegrating 4 mg PO Q6H PRN #10 tabs 03/08/22 tablet Allergies Allergy/AdvReac Type Severity Reaction Status Date / Time No Known Allergies Allergy Verified 10/10/23 11:13 General Stated Complaint: GenMedical GEORGES: 3 Review of Systems Narrative: Review of Systems Constitutional: negative Eyes: negative ENT: negative Cardiovascular: negative Respiratory: negative Gastrointestinal: negative : negative Musculoskeletal: negative Skin: negative Neurologic: Brief visual flashes, fasciculation of lip and wrist Psych: negative Exam Narrative Exam Narrative: Physical Examination General: alert, awake, cooperative, resting comfortably, no acute distress HEENT: normocephalic, atraumatic; PERRL, EOM intact, conjunctiva normal; no nasal discharge; moist mucous membranes, oral and pharyngeal mucosa normal, tolerating secretions Neck: supple, trachea midline; full ROM Chest: normal to inspection Respiratory: normal respiratory effort, speaking in full sentences, clear to auscultation, no wheezing, rales or rhonchi Cardiac: regular rate, regular rhythm, S1S2 intact, no murmurs rubs or gallops GI: abdomen soft, non-tender, non-distended; no palpable mass or hepato splenomegaly Skin: no lesions, rashes or trauma appreciated Neuro: AAOx3, cranial nerves II through XII intact out of 5 strength upper lower extremities bilaterally no ataxia, normal speech, normal sensation to light touch equal bilaterally, ambulatory with normal gait Extremities: No peripheral edema Psych: Tearful with regards to stressors, no SI no HI no hallucinations no delusions Course Vital Signs Vital signs: Vital Signs Temperature 36.7 C 10/10/23 11:08 Pulse 107 H 10/10/23 11:08 Respiratory Rate 15 10/10/23 11:08 Blood Pressure 146/93 H 10/10/23 11:08 Pulse Oximetry 98 10/10/23 11:08 Temperature 36.7 C 10/10/23 11:08 Temperature Source Temporal Artery Scan 10/10/23 11:08 Pulse 107 H 10/10/23 11:08 Respiratory Rate 15 10/10/23 11:08 Respiratory Effort Normal 10/10/23 11:11 Blood Pressure 146/93 H 10/10/23 11:08 Blood Pressure Position Sitting 10/10/23 11:08 Pulse Oximetry 98 10/10/23 11:08 Oxygen Delivery Method Room Air 10/10/23 11:08 Oxygen Flow Rate 0 10/10/23 11:08 Pain Level 0 10/10/23 11:08 Medical Decision Making 48-year-old female history of ocular migraine presents with brief sensation of flashing in her right visual field associated with quivering of her right upper lip and right wrist described as deep muscle fasciculation lasting less than 10 minutes, self resolving no associated headache nausea vomiting neck pain weakness numbness or balance issues no associated change in vision, patient has had similar episode within the last week when she was out of town, does endorse being under a tremendous amount of stress from psychosocial events in her life, she does endorse feeling safe and having good support, currently asymptomatic; neurologically intact, without deficits, normal motor and sensory function no ataxia normal speech, no visual symptomatology hemodynamically stable, mildly tachycardic on arrival, no chest pain or shortness of breath, no signs of trauma no signs of intoxication no signs of infection; low suspicion for CVA or seizure activity low suspicion for intracranial mass or infection must consider ocular migraine versus tension headache low suspicion for retinal detachment or central retinal artery occlusion given history and physical; fingerstick glucose normal, EKG nonischemic normal sinus rhythm, discussed differential diagnosis with patient and informed her of our current situation at this hospital where her CT scanner is currently not functioning, patient at this juncture does not want to pursue imaging however is amenable to basic blood work will assess electrolytes CBC TSH, trial of fluids Reglan close reassessment of symptomatology if any worrisome symptoms upon reassessment will consider transfer for imaging 12: 46 patient feeling much better after fluids and medication, asymptomatic, neurologically intact, noted to be mildly hypomagnesemic, will replete with oral magnesium as 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 Given strict return precautions for any worsening symptoms. Visual acuity OS 20/25 OD 20/20 bilateral 20/15 Quality:SDOH Health Related Social Needs: No Data to Display PFSH All Active Problems (Updated 10/10/23 @ 12:48 by Nghia Ford MD) Hypomagnesemia (Acute) Visual symptoms (Acute) Fasciculation (Acute) Screening for colon cancer (Acute) Medical History (Updated 10/10/23 @ 12:48 by Nghia Ford MD) Colorectal polyps Anxiety Intramural uterine fibroid Perimenopausal menorrhagia Family history of ovarian cancer Infertility Surgical History (Updated 01/06/22 @ 07:35 by Miri Mensah) History of bunionectomy bilateral feet Hx of wisdom tooth extraction S/P dilation and curettage x 3 Family History Father Diabetes Mother Tremor due to disorder of CHECK SCALER Paternal Grandmother Ovarian cancer Social History (Updated 11/11/22 @ 09:17 by Sierra Iraheta MD) Smoking/Tobacco Use Status: Former Tobacco Use Quit Date: 04/03/06 Smoking risk assessment performed?: Yes Alcohol Intake: current Alcohol Intake frequency: a few times a week Alcohol type: wine Drug use: Never Substance use type: does not use Details: alcohol: t-7 Household members: spouse and children Number of Children: 1 current occupation: field sales consultant Sexually active: Yes Other: 1 adopted son born in 2014. Struggled with infertility Do you feel safe at home: Yes Do you feel safe in your relationship?: Yes Female Reproductive History Menstrual control method: none History History 3 Para 0 Hx # Term Pregnancies Multiple births Hx # Pregnancies Ectopic pregnancies AB induced Hx Number of Living Children 1 AB spontaneous 3 PAWSS Have you Been Recently Intoxicated or Drunk Within the Last 30 days?: No Have you Ever Experienced Previous Episodes of Alcohol Withdrawal?: No Have you ever Experienced Withdrawal Seizures?: No Have you ever Experienced Delirium Tremens(DT)s?: No Have you ever undergone Alcohol Rehabilitation Treatment (i.e, inpt ot outpatient treatment programs)?: No Have you ever Experienced Blackouts?: No Have you ever Combined Alcohol with other Downers within the last 90 days?: No Have you ever Combined Alcohol with any other Substance of Abuse during the last 90 days?: No Result: 0
[2023-10-10 11:57] LABS: Abs Immature Grans 0.03 10^3/uL (0.0-0.06); Absolute Basophil Count 0.06 10^3/uL (0.0-0.2); Absolute Eosinophil Count 0.13 10^3/uL (0.0-0.7); Absolute Lymphocyte Count 1.73 10^3/uL (1.2-3.4); Absolute Monocyte Count 0.55 10^3/uL (0.1-0.8); Basophils % 0.8 %; Eosinophils % 1.7 %; HCT 37.4 % (36.0-46.0); HGB 12.8 g/dL (11.2-15.7); Immature Grans % 0.4 %; Lymphocytes % 22.5 %; MCH 28.5 pg (27.0-33.0); MCHC 34.2 % (32.0-36.0); MCV 83 fL (80-95); MPV 8.9 fL (8.0-11.0); Monocytes % 7.1 %; Neutrophils % 67.5 %; Platelet Count 221 10^3/uL (130-400); RBC 4.49 10^6/uL (3.93-5.22); RDW 12.4 % (11.7-14.6); RDW-SD 37.9 fL
[2023-10-10] MEDS: Normal Saline 1,000 ML 1000 ML IV (12:08)
[2023-10-10] MEDS: Metoclopramide 10 MG/2 ML VIAL IVP (12:09)
[2023-10-10 12:30] LABS: ALT 21 U/L (14-59); AST 16 U/L (15-37); Albumin 3.4 g/dL (3.4-5.0); Alkaline Phosphatase 36 U/L (46-116); Anion Gap 10.5 mmol/L (3-11); BUN 11 mg/dL (7-18); Bilirubin, Total 0.28 mg/dL (0.2-1.0); CO2 24.5 mmol/L (21.0-32.0); CREATININE 0.8 mg/dL (0.55-1.02); Calcium 8.9 mg/dL (8.5-10.1); Chloride 104 mmol/L (98-107); Estimated GFR 89.71 (mL/min/1.73m2); Glucose 115 mg/dL (74-106); Magnesium 1.6 mg/dL (1.8-2.4); Potassium 3.7 mmol/L (3.5-5.1); Sodium 139 mmol/L (136-145); TSH (W/Ref FT4) 1.63 uIU/mL (0.36-3.74); Total Protein 7.1 g/dL (6.4-8.2)
[2023-10-10 13:27] VITALS: RESP 16
[2023-10-10] MEDS: Magnesium Gluconate 500 MG TAB PO (13:27)
[2023-10-10 13:28] VITALS: BP 125/71; PULSE 89; RESP 18; TEMP 36.7; O2SAT 97
== END 2023-10-10 13:30 | disposition home or self-care (01) ==
LOC: ER 13:32
PROVIDERS: Emergency Provider Emergency Medicine; PCP Nurse Practitioner Family
DX: R25.3 Fasciculation; H53.8 Other visual disturbances; E83.42 Hypomagnesemia
CPT/HCPCS: 80053; 82962; 93005; 96361; 96374; 99284; 83735; 84443; 85025; 93010; J2765

== ENCOUNTER 2023-12-22 00:17 | Outpatient (CLI) | payer BC, SELFPAY ==
--- NOTE | 2023-12-22 | DI.MAMMO_ITS ---
Exam(s) MAMMO SCREENING EXAM: MAMMO SCREENING CLINICAL HISTORY: Screening, Z12.39 TECHNIQUE: Mammograms were interpreted according to the usual protocol including computer analysis w [employer] CAD system, tomosynthesis and C-view imaging. COMPARISON: 2016 through 2022 FINDINGS: The breasts are composed of mainly fatty density , Breast Density category A. No suspicious masses or suspicious microcalcifications are seen. No skin thickening or abnormal axillary lymph nodes are seen. There has been no significant change from prior exams. IMPRESSION: BI-RADS Category 1, Negative mammogram Yearly screening mammography is recommended. Breast Density - Category A, fatty density. A negative radiographic report should not delay biopsy if a dominant or clinically suspicious mass is present. Up to ten percent of cancers are not identified on mammography. A negative report may reinforce clinical impression. Adenosis and dense breasts may obscure an underlying neoplasm. False positive reports average 6 to 10%. Patient will receive a letter notifying them of these results.
== END 2023-12-22 00:37 ==
PROVIDERS: PCP Student in an Organized Health Care Education/Training Program; Visit Provider Student in an Organized Health Care Education/Training Program
DX: Z12.31 Encounter for screening mammogram for malignant neoplasm of breast (principal)
CPT/HCPCS: 77063; 77067

== ENCOUNTER 2024-05-10 11:44 | Outpatient (REF) | payer MEDICAID, SELFPAY ==
--- NOTE | 2024-05-10 10:00 | PAPFT_PTH ---
PATIENT: Renita Rock LOC: [facility] U#:[id number] AGE/SX: 49/F ROOM: RE05/10/[address]: Sierra Iraheta MD : 1975 BED: DIS: 05/10/2024 SPEC #: [id number] RECD: 05/10/24 13:19 STATUS: BARBIE REEulalio #: [id number] LALO: 05/10/24 10:[address]: Sierra Iraheta DEPT: [facility] Cytology RECD BY: Ilda Hinson ENTERED: 05/10/24 13:19 SP TYPE: PAPFT MORALES DR: Dayo Rodriguez Tissues: 1 - CX/ENDOCX FOR PAP SMEARS Procedures: PAP THIN PREP/[facility] Screening HPV DNA PROBE Comments: [id number] (HPV 16 & 18/45)
== END 2024-05-10 11:45 | disposition home or self-care (01) ==
LOC: LBN 11:44
PROVIDERS: PCP Student in an Organized Health Care Education/Training Program; Visit Provider Obstetrics & Gynecology
DX: Z11.51 Encounter for screening for human papillomavirus (HPV) (principal); Z01.419 Encounter for gynecological examination (general) (routine) without abnormal findings
CPT/HCPCS: 88142; 87624

== ENCOUNTER 2024-08-26 16:05 | Emergency (ER) | payer MEDICAID, SELFPAY ==
[2024-08-26 16:14] VITALS: BP 122/75; PULSE 85; RESP 12; TEMP 36.4; O2SAT 96
--- NOTE | 2024-08-26 16:15 | DI.RAD_ITS ---
Exam(s) XR FOOT RT COMPLETE EXAM: XR FOOT RT COMPLETE CLINICAL HISTORY: R foot pain. TECHNIQUE: 2D digital imaging was performed. Three views. COMPARISON: No exams were available for comparison FINDINGS: BONES: No acute fracture is present. No bony destructive lesion is seen. Postsurgical changes at the lateral aspect of the 5th metatarsal head. Ossicle lateral to cuboid and base of 5th metatarsal. T iny plantar calcaneal spur. JOINTS: No dislocation present. SOFT TISSUE: Normal. IMPRESSION: No acute abnormality. DATA REPOSITORY: RADIATION DOSE DELIVERED:
--- NOTE | 2024-08-26 16:24 | ED.GENADUL_ITS ---
Discharge Plan Disposition Patient Disposition: Home Condition: Good Discharge Details Clinical Impression: Acute foot pain Primary Care Provider: Dayo Rodriguez ED Provider: Rachel Mccloud Home Meds and New Rx's Prescriptions: No Action citalopram 20 mg tablet 20 mg PO DAILY alprazolam [Xanax] 0.25 mg tablet 0.25 mg PO PRN multivitamin Tablet 1 tab PO DAILY Fish Oil 300-500 mg capsule 1 cap PO DAILY cholecalciferol (vitamin D3) 10 mcg (400 unit) capsule 10 mcg PO DAILY trazodone 50 mg tablet 50 mg PO DAILY Patient Comments: TAKE ONE-HALF TABLET BY MOUTH EVERY EVENING Liletta 20.4 mcg/24 hr (8 yrs) 52 mg intrauterine device 1 device intrauterine ONCE Rx Instructions: as a single dose fluconazole 150 mg tablet 150 mg PO ONCE Qty: 2 0RF Rx Instructions: Repeat in 72hrs if still symptoms ondansetron 4 mg tablet,disintegrating 4 mg PO Q6H PRNQty: 10 0RF Discharge Instructions Instructions: Stress Fracture of the Metatarsal Bone (DC) Additional Instructions: I recommend that you call your primary care provider first thing tomorrow morning to schedule follow-up appointment before you leave on your trip. I did place a referral to our local home health provider for further evaluation/management of your foot pain. There is no radiographically evident fracture noted on x-ray, however your history and symptoms are most consistent with a stress fracture of the fifth metatarsal. Keep weight off your foot. Use the walking boot when you are up and about to help take pressure off of your foot. Elevate above heart level. Apply ice for 15 to 20 minutes at a time every hour or two. Use Tylenol 650 mg every 6 hours as needed for pain. Return to emergency care if you notice any signs of neurovascular compromise such as numbness/blueness to your toes, severe foot pain, or if you are very worried and need to be rechecked immediately Referrals: Dayo Rodriguez [Primary Care Provider] - Ludy Muhammad DPM [[facility]] - [facility] General Date/Time Provider Initiated Documentation: 08/26/24 16:22 . HPI Narrative: Renita is a 49-year-old female who presents to the emergency department today for evaluation of right foot pain. She reports that last night she was walking in [place] wearing wedge heels when she all of a sudden felt a sensation of something giving way in her foot while stepping. There was no accompanying snapping or cracking sound. Pain intensified while walking, localizing to the 4th and 5th toes, causing her to limp. Today she was unable to bear weight on foot due to pain. Denies numbness/tingling in toes, pain in ankle or knee. There is mild swelling to the lateral aspect of her foot. Managing pain with ice, elevation, and Tylenol. She does have a history of intermittent right foot discomfort managed with flat shoes and cautious movements. Discomfort often accompanied by heel inflammation. Engages in Pilates thrice weekly; footwear influences discomfort. Despite supportive footwear, sensitivity persists. History of childhood foot fractures, no recent home health provider or orthopedist consultation. No history of osteoporosis or other bony disorders Related Data Home Medications ?Medication ?Instructions ?Recorded ?Confirmed citalopram 20 mg tablet 20 mg PO DAILY 04/21/20 08/26/24 alprazolam 0.25 mg tablet (Xanax) 0.25 mg PO PRN 07/05/21 08/26/24 cholecalciferol (vitamin D3) 10 10 mcg PO DAILY 12/22/21 08/26/24 mcg (400 unit) capsule multivitamin 1 tab PO DAILY 12/22/21 08/26/24 omega-3 fatty acids-fish oil 300 1 cap PO DAILY 12/22/21 08/26/24 mg-500 mg capsule (Fish Oil) ondansetron 4 mg disintegrating 4 mg PO Q6H PRN #10 tabs 03/08/22 08/26/24 tablet levonorgestrel 20.4 mcg/24 hr (up 1 device intrauterine ONCE 05/10/24 08/26/24 to 8 yrs) 52 mg intrauterine device (Liletta) trazodone 50 mg tablet 50 mg PO DAILY 05/10/24 08/26/24 fluconazole 150 mg tablet 150 mg PO ONCE #2 tabs 06/06/24 08/26/24 Previous Rx's ?Medication ?Instructions ?Recorded ondansetron 4 mg disintegrating 4 mg PO Q6H PRN #10 tabs 03/08/22 tablet fluconazole 150 mg tablet 150 mg PO ONCE #2 tabs 06/06/24 Allergies Allergy/AdvReac Type Severity Reaction Status Date / Time No Known Allergies Allergy Verified 08/26/24 16:19 General Stated Complaint: Orthopedic GEORGES: 4 Exam Narrative Exam Narrative: General Appearance: Normal. Patient is alert and oriented, in no acute distress Vital signs: Within normal limits. Extremities: Swelling to lateral aspect of right foot. No obvious deformity, crepitus, or ecchymosis. No overlying abrasion/skin tears. + CMS to toes, brisk cap refill. Skin: Warm and dry, no rash. Psychiatric: Normal. Course Vital Signs Vital signs: Vital Signs Temperature 36.4 C 08/26/24 16:14 Pulse 85 08/26/24 16:14 Respiratory Rate 12 08/26/24 16:14 Blood Pressure 122/75 08/26/24 16:14 Pulse Oximetry 96 08/26/24 16:14 Temperature 36.4 C 08/26/24 16:14 Temperature Source Oral 08/26/24 16:14 Pulse 85 08/26/24 16:14 Respiratory Rate 12 08/26/24 16:14 Blood Pressure 122/75 08/26/24 16:14 Blood Pressure Position Sitting 08/26/24 16:14 Pulse Oximetry 96 08/26/24 16:14 Pain Level 10 08/26/24 16:14 Comment 10/10 with activity. 0/10 without activity 08/26/24 16:14 Medical Decision Making Initial Assessment: 49-year-old female with right foot pain, swelling, and difficulty bearing weight. Differential Diagnosis: - Stress fracture: X-ray does not reveal abnormalities, but potential stress fracture considered. - No red flags concerning for dislocation, neurovascular compromise, or other serious etiology requiring additional diagnostic imaging/blood work. ED Course: - X-ray reviewed, no obvious abnormalities. This was confirmed by radiologist - Advised supportive footwear and orthopedic boot when not at rest. - Use ice, elevation, and Tylenol for pain management. - Ensure adequate calcium intake. Final Assessment: Right foot pain with potential stress fracture. Treatment includes supportive footwear, orthopedic boot, ice, elevation, Tylenol, and calcium supplementation. Clinical Impression: - Right foot pain - Probable stress fracture Disposition: - Follow-Up: Consult primary care physician for reassessment referral made to podiatry for further evaluation/management. Follow-up with orthopedics/podiatry if symptoms persist for subsequent x-rays. Seek immediate medical attention for any color changes in toes, such as dusky blue hue. MDM Components Evaluation: - Number of Differential Diagnoses or Management Options: Stress fracture - Amount and Complexity of Data Reviewed: X-ray reviewed - Risk of Complication and Morbidity or Mortality: Potential for stress fracture, risk of neurovascular compromise if color changes in toes occur. Patient consented to the use of [facility] Imaging Data Radiologic Study: Radiologist's impression: PROCEDURE INFORMATION: Exam: XR Right Foot Exam date and time: 08/26/2024 4:36 PM Age: 49 years old Clinical indication: Pain; Foot; Right; Additional info: R foot pain. PT sts walking and felt something in her foot slide forward. No prev inj TECHNIQUE: Imaging protocol: Radiologic exam of the right foot. Views: 3 or more views. COMPARISON: No relevant prior studies available. FINDINGS: Bones/joints: There is deformity of the base of the 5th metatarsal with an ununited old fracture fragment displaced proximally. It is well corticated. No acute fracture seen. Soft tissues: Normal. IMPRESSION: Old ununited fracture at the base of the 5th metatarsal. Quality:SDOH Health Related Social Needs: No Data to Display PFSH All Active Problems (Updated 08/26/24 @ 17:22 by Rachel Brown) Acute foot pain (Acute) Perimenopausal (Acute) Medical History (Updated 08/26/24 @ 17:22 by Rachel Brown) Presence of 52 mg levonorgestrel-releasing intrauterine device (IUD) Liletta IUD placed 05/10/24 Urinary, incontinence, stress female Colorectal polyps Anxiety Intramural uterine fibroid Perimenopausal menorrhagia Liletta IUD placed May 2024 Family history of ovarian cancer Infertility Surgical History (Updated 01/06/22 @ 07:35 by Miri Mensah) History of bunionectomy bilateral feet Hx of wisdom tooth extraction S/P dilation and curettage x 3 Family History Father Diabetes Mother Tremor due to disorder of [employer] Paternal Grandmother Ovarian cancer Social History (Updated 06/20/24 @ 10:41 by Sierra Iraheta MD) Smoking/Tobacco Use Status: Former Tobacco Use Quit Date: 04/03/06 Smoking risk assessment performed?: Yes Alcohol Intake: current Alcohol Intake frequency: a few times a week Alcohol type: wine Drug use: Never Substance use type: does not use Details: alcohol: t-7 Household members: children Number of Children: 1 current occupation: inbound sales consultant Sexually active: Yes Other: 1 adopted son born in 2014. Struggled with infertility Do you feel safe at home: Yes Do you feel safe in your relationship?: Yes Female Reproductive History Menstrual control method: none History History 3 Para 0 Hx # Term Pregnancies Multiple births Hx # Pregnancies Ectopic pregnancies AB induced Hx Number of Living Children 1 AB spontaneous 3 Past Pregnancies Del. Date GA/Weeks # Preg Succ Route Wgt Sex Labor Lgth Anesth esia Location Prov Complic 08/31/14 Delivery Date: 08/31/14 Last Updated by: Sierra Iraheta MD Adopted son, Eloy H/o IVF PAWSS Have you Been Recently Intoxicated or Drunk Within the Last 30 days?: No Have you Ever Experienced Previous Episodes of Alcohol Withdrawal?: No Have you ever Experienced Withdrawal Seizures?: No Have you ever Experienced Delirium Tremens(DT)s?: No Have you ever undergone Alcohol Rehabilitation Treatment (i.e, inpt ot outpatient treatment programs)?: No Have you ever Experienced Blackouts?: No Have you ever Combined Alcohol with other Downers within the last 90 days?: No Have you ever Combined Alcohol with any other Substance of Abuse during the last 90 days?: No Positive Blood Alcohol level on Presentation? [PCS.BAL]: No Evidence of Increased Autonomic Activity (i.e. HR>120, tremor, sweating, agitation, nausea)?: No Result: 0
--- NOTE | 2024-08-26 17:06 | DI.VRAD_ITS ---
PROCEDURE INFORMATION: Exam: XR Right Foot Exam date and time: 08/26/2024 4:36 PM Age: 49 years old Clinical indication: Pain; Foot; Right; Additional info: R foot pain. PT sts walking and felt something in her foot slide forward. No prev inj TECHNIQUE: Imaging protocol: Radiologic exam of the right foot. Views: 3 or more views. COMPARISON: No relevant prior studies available. FINDINGS: Bones/joints: There is deformity of the base of the 5th metatarsal with an ununited old fracture fragment displaced proximally. It is well corticated. No acute fracture seen. Soft tissues: Normal. IMPRESSION: Old ununited fracture at the base of the 5th metatarsal. Dictated and Authenticated by: Hailey Velasquez MD. Orderin Selma Ramos MD
[2024-08-26 17:40] VITALS: BP 131/90; PULSE 74; RESP 20; O2SAT 98
--- NOTE | 2024-08-28 07:37 | NUR.NOTE ---
Accessed chart to get the discharge diagnosis for [facility] billing purposes and to print the demographics. Nursing Note:
== END 2024-08-26 17:21 | disposition home or self-care (01) ==
PROVIDERS: Emergency Provider Nurse Practitioner Family; PCP Student in an Organized Health Care Education/Training Program
DX: M79.671 Pain in right foot (principal)
CPT/HCPCS: 99283 ×2; 29515; 73630

== ENCOUNTER 2024-10-01 02:35 | Outpatient (CLI) | payer MEDICAID, SELFPAY ==
--- NOTE | 2024-10-01 14:44 | DI.RAD_ITS ---
Exam(s) XR FOOT RT COMPLETE EXAM: XR FOOT RT COMPLETE CLINICAL HISTORY: Right foot pain/stress fx,M79.671,M84.374A. TECHNIQUE: 2D digital imaging was performed. Three views. COMPARISON: No exams were available for comparison FINDINGS: BONES: A postsurgical changes at the lateral aspect of the 5th metatarsal head. Ossicle is again noted adjacent to the base of the 5th metatarsal and cuboid. No acute fracture is present. No bony destructive lesion is seen. There is a tiny plantar calcaneal spur. JOINTS: No dislocation present. SOFT TISSUE: Normal. IMPRESSION: Stable appearance of the foot. DATA REPOSITORY: RADIATION DOSE DELIVERED:
== END 2024-10-01 02:55 ==
PROVIDERS: PCP Student in an Organized Health Care Education/Training Program; Visit Provider Podiatrist
DX: M79.671 Pain in right foot (principal); M84.374A Stress fracture, right foot, initial encounter for fracture
CPT/HCPCS: 73630